=== PATIENT | male | born 1965 | race Caucasian/White ===

== ENCOUNTER → 2016-07-08 | Outpatient (CLI) | payer OTHER ==
[~2016-07-08] MED LIST: ABIL5TAB; ABIL5TAB5 PO; ATIV1TAB2; LIPI10TA PO; VITA50003 PO
--- NOTE | 2016-07-08 12:08 | REP ---
Clinical: Pain. Technique: Single AP view of the left pelvis. Findings: Mild age-related changes are appreciated without overt osteoarthritic degenerative findings. No acute fracture dislocation. Surrounding soft tissues unremarkable. Impression: Mild age-related changes. Signed by Bernard Elise MD 07/08/2016 11:59 A
== END ==
LOC: M RAD 11:19
PROVIDERS: ATTEND Family Medicine
DX: M25.552 Pain in left hip (principal); M16.12 Unilateral primary osteoarthritis, left hip

== ENCOUNTER 2016-08-11 11:42 | Inpatient (IN) | payer OTHER ==
[~2016-08-11] VITALS: Ht 182.9 cm; Wt 111.0 kg
[2016-08-11 12:31] LABS: MEAN CORPUSCULAR HEMOGLOBIN 30.5 pg (27.0-33.0); MEAN CORPUSCULAR HGB CONC 34.2 g/dl (32.0-36.5); MEAN CORPUSCULAR VOLUME 89.2 fl (80.0-96.0); RED CELL DISTRIBUTION WIDTH 12.7 % (11.5-14.5); WHITE BLOOD COUNT 12.2 K/mm3 (4.0-10.0)
[2016-08-11 12:55] LABS: ALBUMIN 4.1 GM/DL (3.2-5.2); ALBUMIN/GLOBULIN RATIO 1.32 (1.00-1.93); ALKALINE PHOSPHATASE 81 U/L (45-117); ALT/SGPT 42 U/L (12-78); ANION GAP 11 MEQ/L (8-16); AST/SGOT 13 U/L (15-37); BILIRUBIN,DIRECT < 0.1 MG/DL (0.0-0.2); BILIRUBIN,TOTAL 0.2 MG/DL (0.2-1.0); BLOOD UREA NITROGEN 15 MG/DL (7-18); CALCIUM LEVEL 9.6 MG/DL (8.5-10.1); CARBON DIOXIDE LEVEL 21 MEQ/L (21-32); CHLORIDE LEVEL 108 MEQ/L (98-107); CREATININE FOR GFR 1.11 MG/DL (0.70-1.30); GLOMERULAR FILTRATION RATE > 60.0 (>56); GLUCOSE, FASTING 143 MG/DL (70-105); POTASSIUM SERUM 4.1 MEQ/L (3.5-5.1); SODIUM LEVEL 140 MEQ/L (136-145); TOTAL PROTEIN 7.2 GM/DL (6.4-8.2)
[2016-08-11 12:58] LABS: METHADONE URINE NEGATIVE (NEGATIVE)
[2016-08-11] MEDS ORDERED: LORazepam 2 MG TAB PO STA (13:50)
[2016-08-11] MEDS ORDERED: MOM 30ML SUSPENSION UDC PO PRN (16:45)
[2016-08-11] MEDS ORDERED: MAALOX 30 ML SUSP *UDC PO PRN (16:45)
[2016-08-11] MEDS ORDERED: CO Q1CAP PO (17:04)
[2016-08-11 20:57] VITALS: BP 140/97
[2016-08-11] MEDS: ACETAMINOPHEN TAB 650MG DOSE (2X325MG) PO PRN (22:03)
[2016-08-12 06:21] VITALS: BP 140/81
[2016-08-12] MEDS: CO-ENZYME Q10 50 MG CAP PO SCH (08:43)
--- NOTE | 2016-08-12 15:27 | MHHPE ---
DATE OF ADMISSION: 08/11/2016 Mauro Khan is a 50-year-old male. He states he has terrible shakes. He has trouble sleeping. He states he lives in a small apartment. He states, "I can't type." He states his hands shake. He says he is losing sleep, and he has trouble concentrating. He states he does not like the environment that he is in. He states he talked the carpenter maintenance to bring him to the emergency room. He states he was given "a pill" in the emergency room (ER). He is nervous, has always been nervous since childhood. Apparently he was discharged from this hospital some time last year. He states he had had a domestic issue with difficulties with his father. MEDICATIONS: He states he was on Abilify and Lipitor. He states he stopped the Abilify when he left here. He states he felt well for awhile but in the last few months, he has not felt well, not sleeping well and waking up at night. He has tried to control his nervousness by not using coffee or sugar. He has used [id number] sleep aids only. His legal history is negative. His drug use is negative. Alcohol: He drinks 1-3 beers a day. Neurological: He states he takes Lipitor, which causes him stiffness. He has not ever made a suicide attempt, according to him, and he is not suicidal now. His parents live in [place]. His psychiatric family history: He states his father is developing forgetfulness. Education History: He states he has gotten a business degree on line. 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 He states he was an inpatient here in 2008 and 2015, stating it was for domestic issues with problems with his father who yells at him. MENTAL STATUS EXAMINATION: He states he feels a sense of confusion in the morning, hearing sounds and voices, but after he takes a shower, they disappear. He possibly has visual hallucinations. He was not clear. He feels he is being harassed at the place he lives and being "tested." He states some of the euceda in his apartment are thin; he hears people yelling. But he also has seen the maintenance men pointing at him. He states a few people are "telling him he is being harassed." He also states that on TV, he has heard "insinuations." I reviewed his discharge summary by Dr. Ceballos of 06/08/2015, where she stated that his diagnosis was a schizophrenia spectrum and alcohol use disorder. He was discharged to [facility] outpatient mental health program and was given an appointment with a prescription for Abilify 5 mg. Apparently his parents, during that stay, were not allowed to testify in a retention hearing but a letter from the mother stated he had demonstrated paranoid behavior for numerous years. The parents indicated they were afraid to have him back home, and he was not able to return home. He moved to a new apartment at discharge. His admission at that time with Dr. Griffith was due to the fact that he was threatening his parents at home. He was described as having been "agitated, screaming at his mother to get out of his way and went to get beer." There is no information as to previous medications which this patient has taken. Mental status examination as described. Speech is stuttered. Thought process is normal. No loose associations. He describes visual and auditory hallucinations, thoughts of reference. Judgment and insight are fair. He is fully oriented with no difficulties of recent or remote memory. Attention and concentration seem within normal limits. No disturbances of language. Full fund of knowledge. Mood is anxious. Affect is panged. IMPRESSION: Chronic schizophrenia. Plan to decide on medication, and observation and outpatient planning when he improves.
[2016-08-12 18:00] VITALS: BP 140/90
[2016-08-13] MEDS: traZODone 50 MG TAB PO PRN ×2 (01:48→21:43)
--- NOTE | 2016-08-13 04:13 | HPE ---
DATE OF ADMISSION: 08/11/2016 PRIMARY CARE PROVIDER: [facility], Dr. Kian Liang. HISTORY OF PRESENT ILLNESS: Please refer to psychiatric history and evaluation for further details on this admission. This examination and history is intended for medical issues, which may need treatment, followup or consult on this 50-year-old male. ALLERGIES: No known drug allergies. He has allergy to animal dander, dust mite extract. PAST MEDICAL HISTORY: 1. Vitamin D deficiency. 2. Hyperlipidemia. PAST SURGICAL HISTORY: Negative. SOCIAL HISTORY: He is single, resides in [place]. Smokes 4-5 cigarettes per day. Drinks 2-6 beers per day. FAMILY HISTORY: Noncontributory. HOME MEDICATIONS: - vitamin D 50,000 units one by mouth weekly - CoQ10 100 mg by mouth daily - he states he used to take Lipitor but he felt it made him jittery, he stopped it LABORATORY STUDIES: WBC 12.2, hemoglobin 15.9, hematocrit 46.5, platelets 409. Sodium 140, potassium 4.1, chloride 108, CO2 21, BUN 15, creatinine 1.1. Toxicology screen negative. EKG 05/17/2015 showed sinus rhythm. REVIEW OF SYSTEMS: 10-system review was done, was unremarkable. PHYSICAL EXAMINATION: 50-year-old cooperative male. Height 72 inches, weight 111.9 kg, body mass index (BMI) 33.5. Blood pressure 140/90, pulse 71, respirations 18, temperature 99. Patient is alert and oriented times three. Pupils equal and react to light. Extraocular muscles intact. Cornea and sclerae clear. Conjunctivae were normal. No facial asymmetry. Pharynx, tongue and gums pink and moist. Tongue is midline. Neck is supple without lymphadenopathy. No thyromegaly, no goiter. Chest clear to auscultation without wheeze or retraction. Heart is regular. Abdomen is benign. Bowel sounds positive. Genitourinary/rectal: Not done. Extremities: Show equal strength, full range of motion. No cyanosis, clubbing or edema. Peripheral pulses equal and palpable bilaterally. Skin is warm and dry. IMPRESSION/PLAN: Psychiatric plan per psychiatry. Continue vitamin D and CoQ10. Continued followup with primary care provider as an outpatient. No acute medical issues.
[2016-08-13 06:16] VITALS: BP 135/78
[2016-08-13] MEDS: VITAMIN D 50,000 UNITS CAPSULE (ERGOCALCIFEROL 1.25MG) PO SCH (08:37)
[2016-08-13] MEDS: CO-ENZYME Q10 50 MG CAP PO SCH (08:37)
--- NOTE | 2016-08-13 08:40 | IPN ---
DATE: 08/13/2016 Mauro Khan was seen today. Significantly improved, less shaking and less nervousness. The patient stated that he slept well with the trazodone. He did not describe any significant difficulties with his thinking and generally was overall improved. His speech was characterized by short answers and delay in answers. Thought process, when he spoke, seemed to not demonstrate any significant disorders and his content was mostly concerning his sleeping and that he felt better. There were no loose associations. There were no abnormal or psychotic thoughts described, though patient's eyes darted around the room and he was slow to answer questions. Judgment and insight seemed fair. He was fully oriented. No difficulty with recent or remote memory. Attention and concentration are adequate. No disturbances of language. He had a full fund of knowledge. Mood was good. Affect was neutral. DIAGNOSIS: Chronic schizophrenia, apparently in remission.
[2016-08-13 18:00] VITALS: BP 134/79
[2016-08-14 06:08] VITALS: BP 140/73
[2016-08-14] MEDS: IBUPROFEN 400 MG TAB PO PRN (08:17)
[2016-08-14] MEDS: CO-ENZYME Q10 50 MG CAP PO SCH (08:17)
--- NOTE | 2016-08-14 09:08 | IPN ---
DATE: 08/14/2016 I met with Mauro Hatfieldtaylor today. He has been very concerned about his sleep and had looked very well yesterday; however, last night he states that the service and maintenance people were in the unit and caused him only to have two hours of sleep and he stated therefore "I will not do well today". He is presently on trazodone 50 mg for sleep and no other medications at this time. His symptomatology is he has some thought stopping, his eye contact is variable, he is slow to answer questions and he certainly looks somewhat tired today. MENTAL STATUS EXAMINATION: Speech is slow and he is slow to answer. He is having some indications of difficulty forming a thought. No loose associations. He is not having any abnormal or psychotic thoughts. It is possible he is responding to internal stimuli, but he is not admitting to any, nor is his behavior indicative of it except for his tendency to have difficulty answering questions. His eye contact is variable. Judgment seems good. Insight seems reasonable. He is fully oriented. He is having no difficulties with recent and remote memory. Attention and concentration are normal. His fund of knowledge seems adequate. His mood today is tired and his affect is flat. IMPRESSION: Chronic schizophrenia. No other medications at this time.
[2016-08-14 18:00] VITALS: BP 130/82
[2016-08-14] MEDS: traZODone 50 MG TAB PO PRN (21:18)
[2016-08-15 06:36] VITALS: BP 139/82
[2016-08-15] MEDS: CO-ENZYME Q10 50 MG CAP PO SCH (08:15)
[2016-08-15] MEDS: ACETAMINOPHEN TAB 650MG DOSE (2X325MG) PO PRN (08:16)
--- NOTE | 2016-08-15 11:39 | IPN ---
DATE OF SERVICE: 08/15/2016 I met with Mauro Hatfieldtaylor today. He has been continually concerned about his sleep. He says last night was not too bad, and he wishes to stay on his present dose of trazodone. It is noted that he had been taking Abilify at some point, as I reviewed his past medications, but he does not take it. He is not acutely psychotic, though he does seem to have some distracted thought, and eye contact is variable. It is possible that he is having housing difficulties. He looks better today, more rested. He is slow to answer questions but does not look as tired today. MENTAL STATUS EXAMINATION: His speech is slow. He is slow to answer. He is having some indications of difficulty forming a thought. No loose associations. He is not having any demonstrable psychotic thoughts nor does he seem to be hallucinating or delusional. Judgment seems good. Insight seems fair. He is fully oriented with no difficulties with recent and remote memory. However, he is unclear as to his living situation. I will have discharge planning look into that. Attention and concentration are fair. Fund of knowledge is adequate. Mood is tired. Affect is flat. IMPRESSION: Chronic schizophrenia. No change in medication.
[2016-08-15 18:10] VITALS: BP 130/72
[2016-08-15] MEDS: IBUPROFEN 400 MG TAB PO PRN (21:09)
[2016-08-15] MEDS: traZODone 50 MG TAB PO PRN (21:09)
[2016-08-16 06:12] VITALS: BP 159/95
[2016-08-16] MEDS: ACETAMINOPHEN TAB 650MG DOSE (2X325MG) PO PRN ×2 (08:28→21:11)
[2016-08-16] MEDS: CO-ENZYME Q10 50 MG CAP PO SCH (08:28)
[2016-08-16] MEDS: NICOTINE 14 MG/24 HR TRANSDERMAL TD SCH (09:18)
--- NOTE | 2016-08-16 13:23 | IPN ---
DATE: 08/17/2015 Mauro Khan continues to have mild eye twitches which apparently are baseline. His shaking is completely diminished. He is still having sleeping difficulties. I have raised his trazodone to 100 mg. He is saying he is having only concerns about his housing. He is having no significant fears or hallucinations. He denies delusions, obsessions, convulsions or phobias. He states he would like a quiet place where he can relax and that improves his attention and concentration. His speech is mostly limited to answers of few words. His thought process seems normal. There is no loose associations. He is not describing abnormal or psychotic thoughts. His judgment seems good. His insight into what he needs seems fair. Orientation is full in three spheres. He has no disturbances in recent or remote memory. Attention and concentration seem adequate. No disturbances of language. Fund of knowledge is full. His mood is fair. His affect is neutral. DIAGNOSIS: Chronic schizophrenia. Change in medication involves increase of trazodone 100 mg at bedtime. MTDD
[2016-08-16] MEDS ORDERED: TRAZ10TA PO (17:54)
[2016-08-16 18:00] VITALS: BP 158/78
[2016-08-16] MEDS: traZODone 100 MG TAB PO PRN (21:10)
[2016-08-17 06:16] VITALS: BP 150/98
--- NOTE | 2016-08-17 08:22 | IPN ---
DATE: 08/17/2016 I met with Mauro today and I also met with his mother. Apparently his new apartment is not available and he received a letter that he owed over 4000 dollars to [employer] ([facility]). When his mother met him last night, he apparently was very shaky and nervous and upset. I have no reports whether he made suicidal statements and his mother states she did not hear him say that but she was extremely upset concerning his shaking and nervousness. Clearly this patient was nervous from the bad news he was receiving. Mother requested that I keep the patient for a while longer to help him with his sleep. The patient stated to me this morning that he slept well. He was not shaking and his affect was brighter. I have added Seroquel in the evening to see the effect of that on this patient. He does not like medication. He does not like to take neuroleptic medication. His speech was normal. His thought processes were no indications of thought disorder. He had no loose associations. He did not complain of abnormal or psychotic thoughts. Judgment and insight were fair. Patient was fully oriented. Remote and recent memory were intact. Attention and concentration were intact. No disturbance of language. Full fund of knowledge. Mood is good. Affect was brighter. IMPRESSION: Chronic schizophrenia. Anxiety. MTDD
[2016-08-17] MEDS ORDERED: NICO14PA TD (08:25)
[2016-08-17] MEDS: NICOTINE 14 MG/24 HR TRANSDERMAL TD SCH (08:41)
[2016-08-17] MEDS: CO-ENZYME Q10 50 MG CAP PO SCH (08:42)
[2016-08-17] MEDS: IBUPROFEN 400 MG TAB PO PRN (08:42)
[2016-08-17 18:00] VITALS: BP 158/88
[2016-08-17] MEDS: traZODone 100 MG TAB PO PRN (20:50)
[2016-08-17] MEDS: QUEtiapine FUMARATE **XR** 200MG TABLET PO SCH (20:50)
[2016-08-18 06:15] VITALS: BP 133/88
[2016-08-18] MEDS: CO-ENZYME Q10 50 MG CAP PO SCH (09:05)
[2016-08-18] MEDS: NICOTINE 14 MG/24 HR TRANSDERMAL TD SCH (09:05)
--- NOTE | 2016-08-18 10:33 | IPN ---
DATE: 08/18/2016 Mauro Khan states he slept well last night. I had increased his trazodone and also had added Seroquel to his medication. We had met with his mother yesterday and she was concerned about his nervousness and shaking. Today he is not shaking or nervous and he said he slept very well. His eye contact is good and he is quite relaxed. Apparently there is also some good news concerning his financial difficulties. Speech is he is slow to answer but eventually answers appropriately. Thought process, his thoughts seem to have a pause before being expressed. No loose associations. No abnormal or psychotic thoughts. No obvious response to internal stimuli. Judgment and insight seem fair. He is fully oriented. Recent and remote memory intact. Attention and concentration seem reasonably good. No disturbance of language. Full fund of knowledge. Mood is improved and affect is brighter. DIAGNOSIS: Chronic schizophrenia. We will continue to observe him for nervousness and sleep and plan his discharge to his new apartment hopefully. GREGORIA
[2016-08-18 18:00] VITALS: BP 148/94
[2016-08-18] MEDS: QUEtiapine FUMARATE **XR** 200MG TABLET PO SCH (21:46)
[2016-08-19 06:18] VITALS: BP 116/74
[2016-08-19] MEDS: NICOTINE 14 MG/24 HR TRANSDERMAL TD SCH (08:07)
[2016-08-19] MEDS: CO-ENZYME Q10 50 MG CAP PO SCH (08:08)
[2016-08-19 18:00] VITALS: BP 136/84
[2016-08-19] MEDS: QUEtiapine FUMARATE **XR** 200MG TABLET PO SCH (21:03)
[2016-08-20 06:27] VITALS: BP_SYST 114; BP_SYST 156; BP_DIAS 70; BP_DIAS 88
[2016-08-20] MEDS: CO-ENZYME Q10 50 MG CAP PO SCH (08:16)
[2016-08-20] MEDS: VITAMIN D 50,000 UNITS CAPSULE (ERGOCALCIFEROL 1.25MG) PO SCH (08:16)
[2016-08-20] MEDS: NICOTINE 14 MG/24 HR TRANSDERMAL TD SCH (08:16)
[2016-08-20 18:00] VITALS: BP 155/94
[2016-08-20] MEDS: QUEtiapine FUMARATE **XR** 200MG TABLET PO SCH (21:30)
[2016-08-21 06:41] VITALS: BP 145/82
[2016-08-21] MEDS: CO-ENZYME Q10 50 MG CAP PO SCH (08:20)
[2016-08-21] MEDS: NICOTINE 14 MG/24 HR TRANSDERMAL TD SCH (08:20)
--- NOTE | 2016-08-21 11:37 | IPN ---
DATE: 08/21/2016 I met with Mauro Sagelincoln this morning. He states he slept well. He states he is not too drowsy. He states his hands have stopped shaking. He states, "I am waiting for a ovalle to my new apartment". I met with discharge planning and staff. Mother will be notified that the patient is ready for discharge. Since his new apartment will not be available, he will be most likely having to live with his mother presently. His speech is normal but somewhat stuttered. Thought process is clear, though slow to answer. No loss associations. No abnormal or psychotic thoughts. Eye contact is poor with some blinking noted. Judgment and insight are fair. He is fully oriented. No disturbances of recent or remote memory. His attention and concentration are good. Language demonstrates no abnormalities. He has a full fund of knowledge. Mood is good. Affect is mildly pleasant.
[2016-08-21 18:00] VITALS: BP 142/90
[2016-08-21] MEDS: QUEtiapine FUMARATE **XR** 200MG TABLET PO SCH (21:47)
[2016-08-22 06:15] VITALS: BP 144/82
[2016-08-22] MEDS: NICOTINE 14 MG/24 HR TRANSDERMAL TD SCH (08:27)
[2016-08-22] MEDS: CO-ENZYME Q10 50 MG CAP PO SCH (08:27)
[2016-08-22] MEDS ORDERED: QUET20XRTB PO (09:23)
--- NOTE | 2016-08-22 16:41 | DSES ---
DATE OF ADMISSION: 08/11/2016 DATE OF DISCHARGE: 08/22/2016 Mauro Khan is a 50-year-old male. He states he has terrible shakes. He has trouble sleeping. He states he lives in a small apartment and he states "I can' t type." He states his hands shake. He states he is losing sleep with trouble concentration. He states he does not like the environment he is in and talks of a signal maintenance technician bringing him to the emergency room. He states he was given a pill in the emergency room. He is nervous. He has always been nervous since childhood. Apparently, he was discharged from this hospital sometime last year. He states he had domestic issues and difficulties with his father and does not live at home for that reason. MEDICATIONS: He states he was on: - Abilify - Lipitor He states he stopped the Abilify when he left here. He states he felt well for a while, but in the last few months, he has not well, not sleeping well, waking up at night. He has tried to control his nervousness by not using coffee or sugar. Has used [id number] sleep aids only. LEGAL HISTORY: Negative. DRUG USE: Negative. ALCOHOL: He drinks one to three beers a day. NEUROLOGICAL HISTORY: He states he takes Lipitor, which causes him stiffness. He has not ever made a suicide attempt. According to him, he is not suicidal now. His parents live in [place]. PSYCHIATRIC HISTORY: His father is developing Alzheimer's disease. EDUCATION HISTORY: He states he has a business degree online. 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 Previous discharge summary indicated he was diagnosed with schizophrenia spectrum and alcohol use disorder. He was discharged to [facility] outpatient mental health program, was given an appointment with prescription for Abilify 5 mg. He has demonstrated, according to mother, paranoid behavior for numerous years. Apparently, they were afraid to have him at home and he was not able to return home. COURSE IN THE UNIT: Patient was started on trazodone 50 mg which was adjusted to 100 mg and patient seemed to improve. He was less shaky and less nervous. He did not describe any difficulties in this thinking and was overall improved. He demonstrated no acute psychotic thought, but had mild eye twitches and though his eye contact was poor, he did not appear to be responding to any internal stimuli. His main concern was his housing. Discharge was considered, but when patient met with his mother as well as with a capacity planner, financial issues arose, which caused the patient significant anxiety. His mother requested that we keep him longer. I did add Seroquel 200 mg at bedtime. Patient tolerated it well, felt well, with no difficulties. His new apartment was arranged for and he was discharged to home until that apartment became available. DISCHARGE MENTAL STATUS: His speech indicated a slowness to answer. Thought process showed some delay in expressing his answers. No loose associations. No obvious abnormal or psychotic thoughts. Judgment and insight were fair. Fully oriented. Recent and remote intact. There was no difficulties in attention or concentration. There was no disturbance of language. Mood was fair. Affect was neutral. DISCHARGE DIAGNOSIS: Chronic schizophrenia, apparently in remission. DISCHARGE MEDICATIONS: - Desyrel 100 mg at bedtime - Seroquel 200 mg at bedtime MTDD
== END 2016-08-22 14:30 | disposition home or self-care (01) | DRG 750 ==
LOC: M ED 12:18 → M ED INP 16:35 → M PSY 20:52
PROVIDERS: ADMIT Psychiatry & Neurology Child & Adolescent Psychiatry; ATTEND Psychiatry & Neurology Child & Adolescent Psychiatry
DX: F20.5 Residual schizophrenia (principal); E55.9 Vitamin D deficiency, unspecified; E78.5 Hyperlipidemia, unspecified

== ENCOUNTER → 2016-10-12 | Outpatient (REF) | payer OTHER ==
[~2016-10-12] MED LIST changes: +CO Q1CAP PO; +NICO14PA TD; +QUET20XRTB PO; +TRAZ10TA PO
[2016-10-12 11:41] LABS: EOS % 5.3 % (0.0-3.0); LARGE UNSTAINED CELL % 1.6 % (0.0-4.0); LYMPH % 21.1 % (24.0-44.0); MEAN CORPUSCULAR HEMOGLOBIN 30.3 pg (27.0-33.0); MEAN CORPUSCULAR HGB CONC 33.6 g/dl (32.0-36.5); MEAN CORPUSCULAR VOLUME 90.2 fl (80.0-96.0); MONO % 9.2 % (0.0-5.0); NEUTROPHILS # 5.9 K/mm3 (1.8-7.7); NEUTROPHILS % 61.8 % (36.0-66.0); PLATELET COUNT, AUTOMATED 359 k/mm3 (150-450); WHITE BLOOD COUNT 9.5 K/mm3 (4.0-10.0)
[2016-10-12 11:42] LABS: BASO # 0.1 K/mm3 (0.0-0.2); DIFF SLIDE NUMBER 131; EOS # 0.5 K/mm3 (0.0-0.50); LARGE UNSTAINED CELL # 0.2 K/mm3 (0.0-0.4); MONO # 0.9 K/mm3 (0.0-0.8)
[2016-10-12 12:05] LABS: ALBUMIN 3.4 GM/DL (3.2-5.2); ALBUMIN/GLOBULIN RATIO 0.97 (1.00-1.93); ALKALINE PHOSPHATASE 76 U/L (45-117); ALT/SGPT 42 U/L (12-78); ANION GAP 7 MEQ/L (8-16); AST/SGOT 23 U/L (15-37); BILIRUBIN,TOTAL 0.5 MG/DL (0.2-1.0); BLOOD UREA NITROGEN 15 MG/DL (7-18); CALCIUM LEVEL 8.8 MG/DL (8.5-10.1); CARBON DIOXIDE LEVEL 27 MEQ/L (21-32); CHLORIDE LEVEL 107 MEQ/L (98-107); CREATININE FOR GFR 1.01 MG/DL (0.70-1.30); GLOMERULAR FILTRATION RATE > 60.0 (>56); GLUCOSE, FASTING 93 MG/DL (70-105); POTASSIUM SERUM 4.4 MEQ/L (3.5-5.1); SODIUM LEVEL 141 MEQ/L (136-145); TOTAL PROTEIN 6.9 GM/DL (6.4-8.2)
== END ==
LOC: M SFHCPLAZ 09:05
PROVIDERS: ATTEND Family Medicine
DX: Z51.81 Encounter for therapeutic drug level monitoring (principal); E66.9 Obesity, unspecified

== ENCOUNTER → 2016-12-12 | Outpatient (CLI) | payer OTHER ==
[~2016-12-12] MED LIST changes: +ABIL1TAB11 PO; -ABIL5TAB5 PO; +CO Q100C PO; -CO Q1CAP PO; +VITA1CAP40 PO; -VITA50003 PO
== END ==
LOC: M LAB 12:43
PROVIDERS: ATTEND Family Medicine
DX: R35.1 Nocturia (principal)

== ENCOUNTER → 2017-03-14 | Outpatient (REF) | payer OTHER ==
[2017-03-14 14:12] LABS: BASO # 0.1 10^3/uL (0.0-0.2); BASO % 1.3 % (0.0-1.0); EOS # 0.5 10^3/uL (0.0-0.50); EOS % 5.8 % (0.0-3.0); IMMATURE GRANULOCYTE % 0.5 % (0-0); LYMPH % 23.5 % (24.0-44.0); MEAN CORPUSCULAR HEMOGLOBIN 29.4 pg (27.0-33.0); MEAN CORPUSCULAR HGB CONC 32.4 g/dl (32.0-36.5); MEAN CORPUSCULAR VOLUME 90.7 fl (80.0-96.0); MONO % 11.4 % (0.0-5.0); NEUTROPHILS # 4.8 10^3/uL (1.8-7.7); NEUTROPHILS % 57.5 % (36.0-66.0); PLATELET COUNT, AUTOMATED 360 10^3/uL (150-450); RED CELL DISTRIBUTION WIDTH 13.9 % (11.5-14.5); WHITE BLOOD COUNT 8.4 10^3/uL (4.0-10.0)
[2017-03-14 14:39] LABS: ALBUMIN 3.6 GM/DL (3.2-5.2); ALKALINE PHOSPHATASE 85 U/L (45-117); ALT/SGPT 43 U/L (12-78); ANION GAP 9 MEQ/L (8-16); AST/SGOT 19 U/L (15-37); BILIRUBIN,TOTAL 0.2 MG/DL (0.2-1.0); BLOOD UREA NITROGEN 15 MG/DL (7-18); CALCIUM LEVEL 8.9 MG/DL (8.5-10.1); CARBON DIOXIDE LEVEL 25 MEQ/L (21-32); CHLORIDE LEVEL 107 MEQ/L (98-107); CREATININE FOR GFR 1.19 MG/DL (0.70-1.30); FREE T4 0.81 NG/DL (0.76-1.46); GLOMERULAR FILTRATION RATE > 60.0 (>56); GLUCOSE, FASTING 141 MG/DL (70-105); POTASSIUM SERUM 4.5 MEQ/L (3.5-5.1); SODIUM LEVEL 141 MEQ/L (136-145); TOTAL PROTEIN 6.6 GM/DL (6.4-8.2)
[2017-03-14 14:56] LABS: VITAMIN B12 LEVEL 608 PG/ML (247-911)
[2017-03-14 16:11] LABS: ERYTHROCYTE SEDIMENTATION RATE 10 mm/hr (0-20)
[2017-03-15 12:11] LABS: ALBUMIN 3.67 GM/DL (3.29-5.55); ALBUMIN % 55.6 % (55.8-66.1)
== END ==
LOC: M SFHCPLAZ 09:38
PROVIDERS: ATTEND Family Medicine
DX: D72.821 Monocytosis (symptomatic) (principal); G62.9 Polyneuropathy, unspecified

== ENCOUNTER → 2017-06-13 | Outpatient (REF) | payer OTHER ==
[2017-06-13 19:30] LABS: REASON FOR REVIEW COMPREHENSIVE REVIEW; SLIDE REVIEW Report; SOURCE PERIPHERAL SMEAR
[2017-06-13 21:14] LABS: ESTIMATED AVERAGE GLUCOSE 137 MG/DL (60-110); HEMOGLOBIN A1c 6.4 %
[2017-06-14 11:36] LABS: CONTROL LINE HPYORI INT CTR LINE PRESENT; H PYLORI QUALITATIVE IgG NEGATIVE (NEGATIVE)
== END ==
LOC: M SFHCPLAZ 14:17
DX: R73.03 Prediabetes (principal); D72.821 Monocytosis (symptomatic)

== ENCOUNTER → 2019-08-05 | Outpatient (REF) | payer OTHER ==
[~2019-08-05] MED LIST changes: -QUET20XRTB PO; +SERO200T43 PO; -TRAZ10TA PO; +TRAZ1TAB12 PO; -VITA1CAP40 PO; +VITA50005 PO
[2019-08-05 17:58] LABS: HEMOGLOBIN A1c 7.3 %
== END ==
LOC: M SFHCPLAZ 14:33
PROVIDERS: ATTEND Family Medicine
DX: E11.9 Type 2 diabetes mellitus without complications (principal)

== ENCOUNTER → 2019-11-12 | Outpatient (CLI) | payer OTHER ==
[2019-11-12 14:10] LABS: HEMOGLOBIN A1c 6.9 %
[2019-11-12 14:11] LABS: BLOOD UREA NITROGEN 12 MG/DL (7-18); CALCIUM LEVEL 9.1 MG/DL (8.5-10.1); CARBON DIOXIDE LEVEL 28 MEQ/L (21-32); CHLORIDE LEVEL 100 MEQ/L (98-107); CREATININE FOR GFR 1.05 MG/DL (0.70-1.30); GLOMERULAR FILTRATION RATE > 60.0 (>56); GLUCOSE, FASTING 111 MG/DL (70-100); POTASSIUM SERUM 3.8 MEQ/L (3.5-5.1); SODIUM LEVEL 135 MEQ/L (136-145)
[2019-11-12 14:17] LABS: MALB URINE SIEMENS 6.9 MG/L
== END ==
LOC: M PLALAB 10:57
PROVIDERS: ATTEND Family Medicine
DX: E11.9 Type 2 diabetes mellitus without complications (principal); I10 Essential (primary) hypertension

== ENCOUNTER → 2020-02-27 | Outpatient (REF) | payer OTHER ==
[2020-02-27 14:27] LABS: BLOOD UREA NITROGEN 17 MG/DL (7-18); CARBON DIOXIDE LEVEL 32 MEQ/L (21-32); CHLORIDE LEVEL 97 MEQ/L (98-107); CREATININE FOR GFR 1.03 MG/DL (0.70-1.30); GLOMERULAR FILTRATION RATE > 60.0 (>56); GLUCOSE, FASTING 131 MG/DL (70-100); POTASSIUM SERUM 3.9 MEQ/L (3.5-5.1); SODIUM LEVEL 135 MEQ/L (136-145)
[2020-02-27 14:28] LABS: CALCIUM LEVEL 9.7 MG/DL (8.5-10.1); HEMOGLOBIN A1c 6.3 %
== END ==
LOC: M SFHCPLAZ 12:11
PROVIDERS: ATTEND Family Medicine
DX: E11.9 Type 2 diabetes mellitus without complications (principal); I10 Essential (primary) hypertension

== ENCOUNTER → 2020-09-06 | Outpatient (REF) | payer OTHER ==
[2020-09-06 15:35] LABS: BLOOD UREA NITROGEN 16 MG/DL (7-18); CALCIUM LEVEL 9.5 MG/DL (8.5-10.1); CARBON DIOXIDE LEVEL 28 MEQ/L (21-32); CHLORIDE LEVEL 100 MEQ/L (98-107); CREATININE FOR GFR 1.02 MG/DL (0.70-1.30); GLOMERULAR FILTRATION RATE > 60.0 (>56); GLUCOSE, FASTING 128 MG/DL (70-100); POTASSIUM SERUM 3.5 MEQ/L (3.5-5.1); SODIUM LEVEL 137 MEQ/L (136-145)
[2020-09-06 15:49] LABS: TOTAL 25(OH) VITAMIN D 70.4 NG/ML (30.0-100.0)
[2020-09-06 19:06] LABS: HEMOGLOBIN A1c 6.1 %
== END ==
LOC: M PLALAB 12:18
PROVIDERS: ATTEND Family Medicine
DX: E11.9 Type 2 diabetes mellitus without complications (principal); I10 Essential (primary) hypertension; E55.9 Vitamin D deficiency, unspecified

== ENCOUNTER → 2021-03-04 | Outpatient (CLI) | payer OTHER ==
[2021-03-04 16:23] LABS: ALBUMIN 3.7 GM/DL (3.2-5.2); ALT/SGPT 49 U/L (12-78); BILIRUBIN,TOTAL 0.5 MG/DL (0.2-1.0); BLOOD UREA NITROGEN 16 MG/DL (7-18); CALCIUM LEVEL 9.6 MG/DL (8.5-10.1); CARBON DIOXIDE LEVEL 30 MEQ/L (21-32); CHLORIDE LEVEL 100 MEQ/L (98-107); CHOLESTEROL LEVEL 199 MG/DL (<200); CHOLESTEROL RISK RATIO 5.685 (<5); GLOMERULAR FILTRATION RATE > 60.0 (>56); GLUCOSE, FASTING 143 MG/DL (70-100); HDL CHOLESTEROL 35 MG/DL (>40); LDL CHOLESTEROL 130 MG/DL (<100); NON-HDL-C 164 MG/DL; POTASSIUM SERUM 3.8 MEQ/L (3.5-5.1); SODIUM LEVEL 136 MEQ/L (136-145); TOTAL PROTEIN 7.6 GM/DL (6.4-8.2); TRIGLYCERIDES LEVEL 169 MG/DL (<150)
[2021-03-04 16:52] LABS: HEMOGLOBIN A1c 6.5 %
== END ==
LOC: M PLALAB 12:33
PROVIDERS: ATTEND Family Medicine
DX: E78.2 Mixed hyperlipidemia (principal); I10 Essential (primary) hypertension; E11.9 Type 2 diabetes mellitus without complications

== ENCOUNTER → 2021-06-22 | Outpatient (CLI) | payer OTHER ==
[2021-06-22 16:04] LABS: HEMOGLOBIN A1c 6.4 %
[2021-06-22 16:15] LABS: BLOOD UREA NITROGEN 13 MG/DL (7-18); CALCIUM LEVEL 9.4 MG/DL (8.5-10.1); CARBON DIOXIDE LEVEL 30 MEQ/L (21-32); CHLORIDE LEVEL 100 MEQ/L (98-107); CREATININE FOR GFR 0.96 MG/DL (0.70-1.30); GLOMERULAR FILTRATION RATE > 60.0 (>56); GLUCOSE, FASTING 105 MG/DL (70-100); POTASSIUM SERUM 3.9 MEQ/L (3.5-5.1); SODIUM LEVEL 136 MEQ/L (136-145)
[2021-06-22 16:17] LABS: MALB URINE SIEMENS 7.8 MG/L; MAU/CREAT RATIO 4.6 MCG/MG (0.0-30.0)
== END ==
LOC: M PLALAB 13:35
PROVIDERS: ATTEND Family Medicine
DX: E11.9 Type 2 diabetes mellitus without complications (principal); I10 Essential (primary) hypertension

== ENCOUNTER → 2022-08-11 | Outpatient (CLI) | payer OTHER ==
[2022-08-11 14:45] LABS: ALBUMIN 3.8 G/DL (3.2-5.2); ALKALINE PHOSPHATASE 82 U/L (46-116); ALT/SGPT 43 U/L (7.0-40); AST/SGOT 25 U/L (<34); BILIRUBIN,TOTAL 0.4 MG/DL (0.3-1.2); BLOOD UREA NITROGEN 12 MG/DL (9-23); CALCIUM LEVEL 9.3 MG/DL (8.5-10.1); CARBON DIOXIDE LEVEL 27 MMOL/L (20-31); CHLORIDE LEVEL 104 MMOL/L (98-107); CHOLESTEROL LEVEL 150 MG/DL (<200); CHOLESTEROL RISK RATIO 3.64 (<5); CREATININE FOR GFR 0.75 MG/DL (0.70-1.30); GLOMERULAR FILTRATION RATE > 60.0 (>56); GLUCOSE, FASTING 115 MG/DL (60-100); HDL CHOLESTEROL 41.2 MG/DL (>40); LDL CHOLESTEROL 86.6 MG/DL (<100); NON-HDL-C 108.8 MG/DL; POTASSIUM SERUM 4.8 MMOL/L (3.5-5.1); SODIUM LEVEL 138 MMOL/L (136-145); TRIGLYCERIDES LEVEL 111 MG/DL (<150)
[2022-08-11 14:46] LABS: THYROID STIMULATING HORMONE 2.301 uIU/ML (0.55-4.78); TOTAL 25(OH) VITAMIN D 59.1 NG/ML (20.0-100.0); VITAMIN B12 LEVEL 420 PG/ML (211-911)
[2022-08-11 14:47] LABS: FREE T4 0.87 NG/DL (0.89-1.76)
[2022-08-11 14:50] LABS: HEMATOCRIT 47.7 % (42.0-52.0); HEMOGLOBIN 15.2 g/dl (13.5-17.5); MEAN CORPUSCULAR HEMOGLOBIN 29.2 pg (27.0-33.0); MEAN CORPUSCULAR HGB CONC 31.9 g/dl (32.0-36.5); MEAN CORPUSCULAR VOLUME 91.6 fl (80.0-96.0); PLATELET COUNT, AUTOMATED 376 10^3/uL (150-450); RED BLOOD COUNT 5.21 10^6/uL (4.30-6.10); WHITE BLOOD COUNT 9.6 10^3/uL (4.0-10.0)
[2022-08-11 15:10] LABS: CREATININE, URINE 94.6 MG/DL; MALB URINE SIEMENS < 3.0 MG/L; MAU/CREAT RATIO 3.1 MCG/MG (0.0-30.0)
[2022-08-11 15:34] LABS: HEMOGLOBIN A1c 6.3 % (4.0-6.0)
== END ==
LOC: M PLALAB 10:11
PROVIDERS: ATTEND Internal Medicine Hematology
DX: I10 Essential (primary) hypertension (principal)

== ENCOUNTER → 2022-09-13 | Outpatient (REF) | LOC: M PLAIMG 12:51 | PROVIDERS: ATTEND Internal Medicine | DX: M51.36 Other intervertebral disc degeneration, lumbar region (principal); M51.37 Other intervertebral disc degeneration, lumbosacral region ==

== ENCOUNTER → 2023-07-31 | Outpatient (CLI) | payer OTHER ==
[2023-07-31 14:29] LABS: HEMATOCRIT 47.1 % (42.0-52.0); HEMOGLOBIN 15.5 g/dl (13.5-17.5); MEAN CORPUSCULAR HEMOGLOBIN 29.8 pg (27.0-33.0); MEAN CORPUSCULAR HGB CONC 32.9 g/dl (32.0-36.5); MEAN CORPUSCULAR VOLUME 90.4 fl (80.0-96.0); PLATELET COUNT, AUTOMATED 360 10^3/uL (150-450); RED BLOOD COUNT 5.21 10^6/uL (4.30-6.10); WHITE BLOOD COUNT 9.2 10^3/uL (4.0-10.0)
[2023-07-31 14:42] LABS: HEMOGLOBIN A1c 6.8 % (4.0-6.0)
[2023-07-31 14:59] LABS: CREATININE, URINE 136.6 MG/DL
[2023-07-31 15:00] LABS: MAU/CREAT RATIO 4.3 MCG/MG (0.0-30.0)
[2023-07-31 15:02] LABS: ALBUMIN 3.5 G/DL (3.2-5.2); ALKALINE PHOSPHATASE 71 U/L (46-116); ALT/SGPT 29 U/L (7.0-40); AST/SGOT < 8 U/L (<34); BILIRUBIN,TOTAL 0.4 MG/DL (0.3-1.2); BLOOD UREA NITROGEN 16 MG/DL (9-23); CALCIUM LEVEL 8.4 MG/DL (8.5-10.1); CARBON DIOXIDE LEVEL 25 MMOL/L (20-31); CHLORIDE LEVEL 105 MMOL/L (98-107); CHOLESTEROL LEVEL 130 MG/DL (<200); CREATININE FOR GFR 0.85 MG/DL (0.70-1.30); GLOMERULAR FILTRATION RATE > 60.0 (>56); GLUCOSE, FASTING 163 MG/DL (60-100); HDL CHOLESTEROL 30.2 MG/DL (>40); LDL CHOLESTEROL 75.6 MG/DL (<100); NON-HDL-C 99.8 MG/DL; POTASSIUM SERUM 4.4 MMOL/L (3.5-5.1); SODIUM LEVEL 134 MMOL/L (136-145); TOTAL PROTEIN 6.9 G/DL (5.7-8.2); TRIGLYCERIDES LEVEL 121 MG/DL (<150)
[2023-07-31 15:03] LABS: FREE T4 0.94 NG/DL (0.89-1.76); THYROID STIMULATING HORMONE 3.601 uIU/ML (0.55-4.78)
[2023-07-31 15:04] LABS: TOTAL 25(OH) VITAMIN D 69.6 NG/ML (20.0-100.0); VITAMIN B12 LEVEL 439 PG/ML (211-911)
== END ==
LOC: M PLALAB 09:25
PROVIDERS: ATTEND Internal Medicine Hematology
DX: E78.2 Mixed hyperlipidemia (principal); Z12.5 Encounter for screening for malignant neoplasm of prostate

== ENCOUNTER → 2024-02-01 | Outpatient (CLI) | payer OTHER ==
[2024-02-01 13:12] LABS: BASO # 0.1 10^3/uL (0.0-0.2); BASO % 1.3 % (0.0-1.0); EOS # 0.3 10^3/uL (0.0-0.5); EOS % 3.3 % (0.0-3.0); HEMATOCRIT 46.6 % (42.0-52.0); HEMOGLOBIN 15.6 g/dl (13.5-17.5); LYMPH # 1.7 10^3/uL (1.5-5.0); LYMPH % 19.9 % (24.0-44.0); MEAN CORPUSCULAR HEMOGLOBIN 29.3 pg (27.0-33.0); MEAN CORPUSCULAR HGB CONC 33.5 g/dl (32.0-36.5); MEAN CORPUSCULAR VOLUME 87.6 fl (80.0-96.0); MONO # 0.9 10^3/uL (0.0-0.8); NEUTROPHILS # 5.4 10^3/uL (1.5-8.5); NEUTROPHILS % 64.3 % (36.0-66.0); PLATELET COUNT, AUTOMATED 344 10^3/uL (150-450); RED BLOOD COUNT 5.32 10^6/uL (4.30-6.10); WHITE BLOOD COUNT 8.5 10^3/uL (4.0-10.0)
[2024-02-01 13:36] LABS: ALBUMIN 3.8 G/DL (3.2-5.2); ALKALINE PHOSPHATASE 75 U/L (46-116); ALT/SGPT 27 U/L (7.0-40); AST/SGOT 11 U/L (<34); BILIRUBIN,TOTAL 0.4 MG/DL (0.3-1.2); BLOOD UREA NITROGEN 13 MG/DL (9-23); CALCIUM LEVEL 8.9 MG/DL (8.3-10.6); CARBON DIOXIDE LEVEL 24 MMOL/L (20-31); CHLORIDE LEVEL 107 MMOL/L (98-107); CREATININE FOR GFR 0.85 MG/DL (0.70-1.30); GLOMERULAR FILTRATION RATE > 60.0 (>49); GLUCOSE, FASTING 138 MG/DL (74-106); POTASSIUM SERUM 4.3 MMOL/L (3.5-5.1); SODIUM LEVEL 137 MMOL/L (136-145); TOTAL PROTEIN 7.3 G/DL (5.7-8.2)
[2024-02-01 13:53] LABS: HEMOGLOBIN A1c 6.2 % (4.0-6.0)
== END ==
LOC: M PLALAB 10:41
PROVIDERS: ATTEND Internal Medicine Hematology
DX: I10 Essential (primary) hypertension (principal); E11.9 Type 2 diabetes mellitus without complications; R79.82 Elevated C-reactive protein (CRP)

== ENCOUNTER → 2024-02-07 | Outpatient (CLI) | payer OTHER | LOC: M RAD 09:19 | PROVIDERS: ATTEND Internal Medicine Hematology | DX: Z53.9 Procedure and treatment not carried out, unspecified reason (principal) ==

== ENCOUNTER → 2024-03-04 | Outpatient (CLI) | payer OTHER | LOC: M RAD 16:42 | PROVIDERS: ATTEND Internal Medicine Hematology | DX: Z12.2 Encounter for screening for malignant neoplasm of respiratory organs (principal); R91.1 Solitary pulmonary nodule; F17.210 Nicotine dependence, cigarettes, uncomplicated ==

== ENCOUNTER → 2024-07-15 | Outpatient (CLI) | payer OTHER ==
[2024-07-15 11:11] LABS: HEMOGLOBIN A1c 5.8 % (4.0-6.0)
[2024-07-15 11:30] LABS: ALBUMIN 3.7 G/DL (3.2-5.2); ALKALINE PHOSPHATASE 63 U/L (40-129); ALT/SGPT 26 U/L (7.0-40); AST/SGOT 15 U/L (<34); BILIRUBIN,TOTAL 0.2 MG/DL (0.3-1.2); BLOOD UREA NITROGEN 13 MG/DL (9-23); CALCIUM LEVEL 8.8 MG/DL (8.3-10.6); CARBON DIOXIDE LEVEL 24 MMOL/L (20-31); CHLORIDE LEVEL 107 MMOL/L (98-107); CREATININE FOR GFR 0.83 MG/DL (0.70-1.30); CREATININE, URINE 80.9 MG/DL; GLOMERULAR FILTRATION RATE > 60.0 (>49); GLUCOSE, FASTING 105 MG/DL (74-106); MAU/CREAT RATIO 4.9 MCG/MG (0.0-30.0); POTASSIUM SERUM 4.8 MMOL/L (3.5-5.1); SODIUM LEVEL 140 MMOL/L (136-145); TOTAL PROTEIN 7.2 G/DL (5.7-8.2)
== END ==
LOC: M PLALAB 08:39
PROVIDERS: ATTEND Family Medicine
DX: I10 Essential (primary) hypertension (principal)